=== PATIENT | female | born 1950 | race African-American/Black ===

== ENCOUNTER 2019-03-27 10:39 | Emergency (ER) | payer OTHER ==
--- NOTE | 2019-03-27 11:13 | ER ---
Nurse's Notes [facility] Name: Lizet Morillo Age: 68 yrs Sex: Female : 1950 Arrival Date: 03/27/2019 Time: 10:41 Bed 19 Private MD: Vic Darby T Diagnosis: Pain in right knee;Pain in left shoulder Presentation: 03/27 10:44 Presenting complaint: Patient states: Bilateral knee pain, worse in the right knee and aj1 left shoulder pain for the past month that got worse last night. Denies injury. Transition of care: patient was not received from another setting of care. Onset of symptoms was January 2019. Risk Assessment: Do you want to hurt yourself or someone else? Patient reports no desire to harm self or others. Initial Sepsis Screen: Does the patient meet any 2 criteria? No. Patient's initial sepsis screen is negative. Does the patient have a suspected source of infection? No. Patient's initial sepsis screen is negative. Care prior to arrival: None. 10:44 Method Of Arrival: Ambulatory aj1 10:44 Acuity: GLORIA 4 aj1 Triage Assessment: 10:48 General: Appears in no apparent distress. uncomfortable, Behavior is calm, cooperative, aj1 appropriate for age. Pain: Complains of pain in anterior aspect of left shoulder, posterior aspect of left shoulder, right knee and left knee Pain currently is 10 out of 10 on a pain scale. Neuro: Level of Consciousness is awake, alert, obeys commands. Cardiovascular: Patient's skin is warm and dry. Respiratory: Airway is patent Respiratory effort is even, unlabored, Respiratory pattern is regular, symmetrical. Historical: - Allergies: 10:48 Deltasone; aj1 10:48 TELECTIN; aj1 - Home Meds: 10:48 hydrochlorothiazide 12.5 mg Oral cap 1 cap once daily [Active]; amlodipine 10 mg tab 1 aj1 tab once daily [Active]; Metoprolol Tartrate Oral [Active]; - PMHx: 10:48 Hypertension; Glaucoma; aj1 - PSHx: 10:48 Hysterectomy; Cholecystectomy; cyst and spur removed from foot; aj1 - Immunization history:: Flu vaccine is not up to date. - Social history:: Smoking status: Patient/guardian denies using tobacco. - Ebola Screening: : Patient denies travel to an Ebola-affected area in the 21 days before illness onset. - Family history:: not pertinent. Screenin:54 Abuse screen: Denies threats or abuse. Nutritional screening: No deficits noted. em Tuberculosis screening: No symptoms or risk factors identified. Fall Risk None identified. Assessment: 10:48 General: Appears in no apparent distress. comfortable, Behavior is calm, cooperative, em denies trauma . Pain: Complains of pain in right knee and left knee and posterior aspect of left shoulder and anterior aspect of left shoulder Pain currently is 10 out of 10 on a pain scale. Pain began 1 day ago. Neuro: Level of Consciousness is awake, alert, obeys commands, Oriented to person, place, time, situation. Cardiovascular: Capillary refill < 3 seconds Patient's skin is warm and dry. Respiratory: Airway is patent Respiratory effort is even, unlabored, Respiratory pattern is regular, symmetrical. GI: Abdomen is round non-distended. Derm: Skin is intact, is healthy with good turgor, Skin is dry, Skin is normal, Skin temperature is warm. Musculoskeletal: Capillary refill < 3 seconds, Range of motion: intact in all extremities, Reports pain in right knee and left knee and posterior aspect of left shoulder and anterior aspect of left shoulder. 10:48 Reassessment: I agree with assessment completed by Florian Colby LVN . aa5 Vital Signs: 10:48 BP 141 / 68; Pulse 80; Resp 18; Temp 98.2; Pulse Ox 100% on R/A; Weight 117.93 kg (R); aj1 Height 5 ft. 6 in. (167.64 cm) (R); Pain 10/10; 10:48 Body Mass Index 41.96 (117.93 kg, 167.64 cm) aj1 ED Course: 10:41 Patient arrived in ED. as 10:41 Vic Darby MD is Private Physician. as 10:46 Triage completed. aj1 10:48 Arm band placed on Patient placed in an exam room. aj1 10:50 Rickey Arredondo MD is Attending Physician. [facility] 10:54 Florian Colby LVN is Primary Nurse. em 10:54 Patient has correct armband on for positive identification. Bed in low position. Call em light in reach. Side rails up X2. Pulse ox on. NIBP on. 11:12 Vic Darby MD is Referral Physician. [facility] 11:34 No provider procedures requiring assistance completed. Patient did not have IV access em during this emergency room visit. Administered Medications: 11:22 Drug: Motrin 400 mg Route: PO; em 11:34 Follow up: Response: No adverse reaction em Outcome: 11:13 Discharge ordered by . [facility] 11:34 Discharged to home ambulatory. em 11:34 Condition: good 11:34 Discharge instructions given to patient, Instructed on discharge instructions, follow up and referral plans. medication usage, Demonstrated understanding of instructions, follow-up care, medications, Prescriptions given X 2. 11:35 Patient left the ED. em Signatures: Edith Callejas, RN RN aj1 Rickey Arredondo MD MD cha Munoz, Edgar, LOGISTICS SOLUTION MANAGER LOGISTICS SOLUTION MANAGER em Joanne Mancilla Audri, RN RN aa5 Corrections: (The following items were deleted from the chart) 11:09 10:48 Musculoskeletal: Capillary refill < 3 seconds, Range of motion: intact in all em extremities, em 14:24 10:48 Derm: Skin is intact, is healthy with good turgor, Skin is pink, warm \T\ dry. em aa5
--- NOTE | 2019-03-27 11:14 | EDPHYS ---
Physician Documentation [facility] Name: Lizet Morillo Age: 68 yrs Sex: Female : 1950 Arrival Date: 03/27/2019 Time: 10:41 Bed 19 Private MD: Vic Darby T ED Physician Rickey Arredondo HPI: 03/27 11:08 This 68 yrs old Black Female presents to ER via Ambulatory with complaints of Knee harry Pain, Shoulder Pain. 11:08 The patient or guardian complains of decreased range of motion, pain, that is chronic. harry left shoulder. 11:09 Modifying factors: the symptoms are alleviated by remaining still. The patient presents harry with decreased range of motion. The complaints affect the left arm and right leg. Historical: - Allergies: 10:48 Deltasone; aj1 10:48 TELECTIN; aj1 - Home Meds: 10:48 hydrochlorothiazide 12.5 mg Oral cap 1 cap once daily [Active]; amlodipine 10 mg tab 1 aj1 tab once daily [Active]; Metoprolol Tartrate Oral [Active]; - PMHx: 10:48 Hypertension; Glaucoma; aj1 - PSHx: 10:48 Hysterectomy; Cholecystectomy; cyst and spur removed from foot; aj1 - Immunization history:: Flu vaccine is not up to date. - Social history:: Smoking status: Patient/guardian denies using tobacco. - Ebola Screening: : Patient denies travel to an Ebola-affected area in the 21 days before illness onset. - Family history:: not pertinent. ROS: 11:09 Constitutional: Negative for fever, chills, and weight loss, Eyes: Negative for injury, harry pain, redness, and discharge, ENT: Negative for injury, pain, and discharge, Neck: Negative for injury, pain, and swelling, Cardiovascular: Negative for chest pain, palpitations, and edema, Respiratory: Negative for shortness of breath, cough, wheezing, and pleuritic chest pain, Abdomen/GI: Negative for abdominal pain, nausea, vomiting, diarrhea, and constipation, Back: Negative for injury and pain, : Negative for injury, bleeding, discharge, and swelling, Skin: Negative for injury, rash, and discoloration, Neuro: Negative for headache, weakness, numbness, tingling, and seizure, Psych: Negative for depression, anxiety, suicide ideation, homicidal ideation, and hallucinations, Allergy/Immunology: Negative for hives, rash, and allergies, Endocrine: Negative for neck swelling, polydipsia, polyuria, polyphagia, and marked weight changes, Hematologic/Lymphatic: Negative for swollen nodes, abnormal bleeding, and unusual bruising. Exam: 11:09 Constitutional: This is a well developed, well nourished patient who is awake, alert, harry and in no acute distress. Head/Face: Normocephalic, atraumatic. Eyes: Pupils equal round and reactive to light, extra-ocular motions intact. Lids and lashes normal. Conjunctiva and sclera are non-icteric and not injected. Cornea within normal limits. Periorbital areas with no swelling, redness, or edema. ENT: Nares patent. No nasal discharge, no septal abnormalities noted. Tympanic membranes are normal and external auditory canals are clear. Oropharynx with no redness, swelling, or masses, exudates, or evidence of obstruction, uvula midline. Mucous membranes moist. Neck: Trachea midline, no thyromegaly or masses palpated, and no cervical lymphadenopathy. Supple, full range of motion without nuchal rigidity, or vertebral point tenderness. No Meningismus. Chest/axilla: Normal chest wall appearance and motion. Nontender with no deformity. No lesions are appreciated. Cardiovascular: Regular rate and rhythm with a normal S1 and S2. No gallops, murmurs, or rubs. Normal PMI, no JVD. No pulse deficits. Respiratory: Lungs have equal breath sounds bilaterally, clear to auscultation and percussion. No rales, rhonchi or wheezes noted. No increased work of breathing, no retractions or nasal flaring. Abdomen/GI: Soft, non-tender, with normal bowel sounds. No distension or tympany. No guarding or rebound. No evidence of tenderness throughout. Back: No spinal tenderness. No costovertebral tenderness. Full range of motion. Skin: Warm, dry with normal turgor. Normal color with no rashes, no lesions, and no evidence of cellulitis. Neuro: Awake and alert, GCS 15, oriented to person, place, time, and situation. Cranial nerves II-XII grossly intact. Motor strength 5/5 in all extremities. Sensory grossly intact. Cerebellar exam normal. Normal gait. Psych: Awake, alert, with orientation to person, place and time. Behavior, mood, and affect are within normal limits. 11:09 Musculoskeletal/extremity: Extremities: noted in the left arm and right leg: decreased ROM, pain. Vital Signs: 10:48 BP 141 / 68; Pulse 80; Resp 18; Temp 98.2; Pulse Ox 100% on R/A; Weight 117.93 kg (R); aj1 Height 5 ft. 6 in. (167.64 cm) (R); Pain 10/10; 10:48 Body Mass Index 41.96 (117.93 kg, 167.64 cm) aj1 MDM: 10:50 Patient medically screened. [facility] 11:09 Data reviewed: vital signs, nurses notes. [facility] Administered Medications: 11:22 Drug: Motrin 400 mg Route: PO; em 11:34 Follow up: Response: No adverse reaction em Disposition: 03/27/19 11:13 Discharged to Home. Impression: Pain in right knee, Pain in left shoulder. - Condition is Stable. - Discharge Instructions: Arthritis, Musculoskeletal Pain, Shoulder Pain, Knee Pain, Shoulder Pain, [id number], Arthritis, [id number], Joint Pain, [id number]. - Prescriptions for Tylenol- Codeine #3 300-30 mg Oral Tablet - take 1 tablet by ORAL route every 4 hours As needed; 30 tablet. Motrin IB 200 mg Oral Tablet - take 1 tablet by ORAL route every 6 hours As needed as needed with food; 20 tablet. - Medication Reconciliation Form, Thank You Letter, Antibiotic Education, Prescription Opioid Use form. - Follow up: Vic Darby MD; When: 2 - 3 days; Reason: Recheck today's complaints, Continuance of care, Re-evaluation by your physician. - Problem is new. - Symptoms have improved. Signatures: Edith Callejas RN RN aj1 Rickey Arredondo MD MD cha Munoz, Edgar, SAND SHOVELER SAND SHOVELER em Corrections: (The following items were deleted from the chart) 11:35 11:13 03/27/2019 11:13 Discharged to Home. Impression: Pain in right knee; Pain in left em shoulder. Condition is Stable. Forms are Medication Reconciliation Form, Thank You Letter, Antibiotic Education, Prescription Opioid Use. Follow up: Vic Darby; When: 2 - 3 days; Reason: Recheck today's complaints, Continuance of care, Re-evaluation by your physician. Problem is new. Symptoms have improved. harry
[2019-03-27] MEDS ORDERED: IBUPROFEN 400 MG TAB ONE (11:37)
[2019-03-27 11:39] VITALS: BP 141/68; TEMP 98.2; O2SAT 100
== END 2019-03-27 11:35 | disposition home or self-care (01) ==
LOC: ER 10:39
DX: M25.512 Pain in left shoulder (principal); I10 Essential (primary) hypertension; Z88.8 Allergy status to other drugs, medicaments and biological substances
CPT/HCPCS: 99283